=== PATIENT | female | born 1965 | race American Indian/Alaskan Native ===

== ENCOUNTER 2017-10-18 11:24 | Outpatient (CLI) | payer BC ==
--- NOTE | 2017-10-18 14:45 | Ultrasound Report ---
BILATERAL DIGITAL DIAGNOSTIC MAMMOGRAM with CAD and LEFT BREAST ULTRASOUND: 10/18/17 CLINICAL: Left breast pain. COMPARISON:07/30/13 FINDINGS: The breasts are heterogeneously dense, which may obscure small masses.Stable asymmetric left upper outer breast parenchyma. No mass, architectural distortion or suspicious calcifications. Ultrasound of the left breast (including all four quadrants and the retroareolar area) demonstrated normal fibroglandular and fatty structures. No mass, cyst or shadowing. IMPRESSION: Negative mammogram and negative left breast ultrasound. No explanation for left breast pain. BI-RADS CATEGORY: 1 -- Negative RECOMMENDATION: Routine mammographic screening in one year. COMMENT: Patient follow-up letters are generated by our [facility] [employer] application.
== END 2017-10-18 11:25 | disposition home or self-care (01) ==
LOC: SPVWC 11:24
PROVIDERS: ATTEND Physician Assistant Medical
DX: N64.4 Mastodynia (principal)
CPT/HCPCS: 77066

== ENCOUNTER 2018-11-03 15:30 | Outpatient (CLI) | payer BC ==
--- NOTE | 2018-11-03 16:22 | Mammography Report ---
BILATERAL DIGITAL SCREENING MAMMOGRAM with CAD: 11/03/18 15:30:00 CLINICAL: Routine screening. COMPARISON:10/18/17 and 07/30/13 FINDINGS: The breasts are heterogeneously dense, which may obscure small masses. No mass, architectural distortion or suspicious calcifications. IMPRESSION: No mammographic evidence of malignancy. BI-RADS CATEGORY: 1 - - Negative RECOMMENDATION: Routine mammographic screening in one year. COMMENT: Patient follow-up letters are generated by our [employer] application.
== END 2018-11-03 15:31 | disposition home or self-care (01) ==
LOC: SPVWC 15:30
PROVIDERS: ATTEND Physician Assistant Medical
DX: Z12.31 Encounter for screening mammogram for malignant neoplasm of breast (principal)
CPT/HCPCS: 77067

== ENCOUNTER 2020-05-14 10:18 | Outpatient (CLI) | payer BC ==
--- NOTE | 2020-05-14 16:59 | Mammography Report ---
DIGITAL SCREENING MAMMOGRAM WITH CAD, 05/14/2020 INDICATION: Routine screening mammography. TECHNIQUE: Digital bilateral 2D mammography was obtained in the craniocaudal and mediolateral obliq ue projections. This examination was interpreted with the benefit of Computer-Aided Detection analysi s. COMPARISON: 07/30/2013 FINDINGS: Breast Density: There are scattered areas of fibroglandular density. There is no evidence of dominant mass, suspicious calcifications or architectural distortion in eithe r breast. No interval change. IMPRESSION: No evidence of malignancy. Follow up recommendation: Routine yearly BI-RADS Category 1: Negative. A "normal" or negative report should not discourage follow up or biopsy of a clinically significant f inding. A written summary of these findings will be mailed to the patient. The patient will be entered into a mammography reporting system which will generate a reminder letter for the patient's next appointmen t at the appropriate interval. The [employer] recommends yearly mammograms starting at age 40 and continuing as l sarita as a woman is in good health. Breast MRI is recommended for women with an approximate 20-25% or greater lifetime risk of breast cancer, including women with a strong family history of breast or ova nina cancer or who have been treated for Hodgkin's disease. Signer Name: Carolyn Torres MD Signed: 05/14/2020 4:54 PM Workstation Name: [id number]
== END 2020-05-14 10:19 | disposition home or self-care (01) ==
LOC: SPVWC 10:18
PROVIDERS: ATTEND Internal Medicine
DX: Z12.31 Encounter for screening mammogram for malignant neoplasm of breast (principal)
CPT/HCPCS: 77067

== ENCOUNTER 2022-01-06 15:26 | Outpatient (CLI) | payer BC ==
--- NOTE | 2022-01-08 09:47 | Mammography Report ---
DIGITAL SCREENING MAMMOGRAM WITH CAD, 01/06/2022 CLINICAL INFORMATION / INDICATION: Routine screening TECHNIQUE: Digital bilateral 2D mammography was obtained in the craniocaudal and mediolateral obliqu e projections. This examination was interpreted with the benefit of Computer-Aided Detection analysis . COMPARISON: 05/14/2020 FINDINGS: Breast Density: There are scattered areas of fibroglandular density. No dominant mass, suspicious calcifications, or architectural distortion in either breast. Left density is stable. IMPRESSION: No mammographic evidence of malignancy. Follow up recommendation: Routine yearly screening mammogram. BI-RADS Category 2: BENIGN. A "normal" or negative report should not discourage follow up or biopsy of a clinically significant f inding. A written summary of these findings will be mailed to the patient. The patient will be entered into a mammography reporting system which will generate a reminder letter for the patient's next appointmen t at the appropriate interval. The [employer] recommends yearly mammograms starting at age 40 and continuing as l sarita as a woman is in good health. Breast MRI is recommended for women with an approximate 20-25% or greater lifetime risk of breast cancer, including women with a strong family history of breast or ova nina cancer or who have been treated for Hodgkin's disease. Signer Name: Timur Newby MD Signed: 01/08/2022 9:43 AM Workstation Name: [id number]
== END 2022-01-06 15:27 | disposition home or self-care (01) ==
LOC: SPVWC 15:26
PROVIDERS: ATTEND Internal Medicine
DX: Z12.31 Encounter for screening mammogram for malignant neoplasm of breast (principal)
CPT/HCPCS: 77067